=== PATIENT | female | born 1955 | race Caucasian/White ===

== ENCOUNTER → 2016-10-26 | Outpatient (CLI) | payer BC | END | disposition home or self-care (01) | LOC: C.PAPS 10:46 | PROVIDERS: ATTEND Obstetrics & Gynecology | DX: Z01.419 Encounter for gynecological examination (general) (routine) without abnormal findings (principal) ==

== ENCOUNTER → 2017-01-14 | Outpatient (CLI) | payer BC ==
[2017-01-14 10:32] LABS: CHOLESTEROL/HDL RATIO 4.6
== END | disposition home or self-care (01) ==
LOC: C.LAB 08:36
PROVIDERS: ATTEND Internal Medicine
DX: Z00.00 Encounter for general adult medical examination without abnormal findings (principal); R73.01 Impaired fasting glucose; E78.5 Hyperlipidemia, unspecified

== ENCOUNTER → 2017-03-30 | Outpatient (CLI) | payer BC ==
--- NOTE | 2017-03-30 12:14 | DIAGNOSTIC IMAGING REPORT ---
LEFT ANKLE MIN 3 VIEWS ROUTINE CLINICAL HISTORY: 61 years-old Female presenting with left ankle sprain. TECHNIQUE: Frontal, oblique, and lateral views of the left ankle were obtained. COMPARISON: None. FINDINGS: Prominent osteophyte of the posterior calcaneal tuberosity. Ankle mortise intact. No acute fracture, malalignment, or radiopaque foreign body. No gross evidence of a ankle joint effusion. IMPRESSION: 1. No acute osseous injury of the left ankle. Electronically signed by: Yong Saeed 03/30/2017 12:13 PM Dictated Date/Time: 03/30/2017 12:05 PM
== END | disposition home or self-care (01) ==
LOC: C.RAD1850 11:51
PROVIDERS: ATTEND Physician Assistant
DX: S93.409A Sprain of unspecified ligament of unspecified ankle, initial encounter (principal); X58.XXXA Exposure to other specified factors, initial encounter

== ENCOUNTER → 2017-07-18 | Outpatient (CLI) | payer BC ==
[2017-07-18 14:15] LABS: BLOOD UREA NITROGEN 12 mg/dl (7-18); BUN/CREATININE RATIO 15.1 (10-20); CALCIUM 9.3 mg/dl (8.5-10.1); CARBON DIOXIDE 28 mmol/L (21-32); CHLORIDE 102 mmol/L (98-107); CHOLESTEROL 249 mg/dl (0-200); GLUCOSE 105 mg/dl (70-99); SODIUM 136 mmol/L (136-145); TRIGLYCERIDES 104 mg/dl (0-150); VERY LOW DENSITY LIPOPROT CALC 21 mg/dl
[2017-07-18 14:19] LABS: CHOLESTEROL/HDL RATIO 5.1; HDL CHOLESTEROL 49 mg/dl; LDL CHOLESTEROL CALCULATED 179 mg/dl
== END | disposition home or self-care (01) ==
LOC: C.LABBC 09:21
PROVIDERS: ATTEND Internal Medicine
DX: E78.5 Hyperlipidemia, unspecified (principal); R73.01 Impaired fasting glucose

== ENCOUNTER → 2017-08-22 | Outpatient (CLI) | payer BC ==
--- NOTE | 2017-08-22 15:09 | MAMMOGRAPHY REPORT ---
BILATERAL DIGITAL SCREENING MAMMOGRAM TOMOSYNTHESIS WITH CAD: 08/22/2017 CLINICAL HISTORY: Routine screening examination. TECHNIQUE: Breast tomosynthesis in addition to standard 2D mammography was performed. Current study was also evaluated with a Computer Aided Detection (CAD) system. COMPARISON: Comparison is made to exams dated: 08/16/2016 mammogram, 08/13/2015 mammogram, 4 mammogram, 08/09/2013 mammogram, 08/07/2012 mammogram, and 07/21/2011 mammogram - [facility]. BREAST COMPOSITION: There are scattered areas of fibroglandular density in both breasts. FINDINGS: There are 2 stable lobulated and circumscribed low-density subcentimeter masses in the lef t breast, most likely representing cysts. A few scattered stable benign-appearing punctate microcalc ifications. No suspicious spiculated or irregular mass, architectural distortion or cluster of suspi cious microcalcifications is seen. IMPRESSION: ACR BI-RADS CATEGORY 1: NEGATIVE There is no mammographic evidence of malignancy. A 1 year screening mammogram is recommended. The pa tient will receive written notification of the results. Approximately 10% of breast cancers are not detected with mammography. A negative mammographic report should not delay biopsy if a clinically suggestive mass is present. Aretha Bailey M.D. ay/:08/22/2017 10:04:34 Video Clerk: Malorie HERNADEZ)([place]), [facility] letter sent: Normal 1/2 BI-RADS Code: ACR BI-RADS Category 1: Negative
== END | disposition home or self-care (01) ==
LOC: C.MAMM 08:58
PROVIDERS: ATTEND Obstetrics & Gynecology
DX: Z12.31 Encounter for screening mammogram for malignant neoplasm of breast (principal)

== ENCOUNTER → 2017-10-31 | Outpatient (CLI) | payer OTHER | END | disposition home or self-care (01) | LOC: C.PAPS 11:44 | PROVIDERS: ATTEND Obstetrics & Gynecology | DX: Z01.419 Encounter for gynecological examination (general) (routine) without abnormal findings (principal) ==

== ENCOUNTER 2024-12-10 08:48 | Observation (INO) ==
--- NOTE | 2024-11-12 10:35 | PAT Medication Instructions ---
Medication Instructions Date of Service November 12, 2024 Home Medications Medication Instructions Recorded Jayde Haines #1 ea 10/04/24 aspirin 81 mg tablet,delayed release (Adult Low Dose Aspirin) 81 mg PO QAM atorvastatin 20 mg tablet 20 mg PO QAM cholecalciferol (vitamin D3) 50 mcg (2,000 unit) capsule 50 mcg PO QPM losartan 50 mg tablet 50 mg PO QAM ASK your prescriber and surgeon aspirin 81 mg tablet,delayed release (Adult Low Dose Aspirin) 81 mg PO QAM DO NOT take the morning of surgery losartan 50 mg tablet 50 mg PO QAM Take morning of surgery With a small sip of water, OTHERWISE NOTHING TO EAT OR DRINK AFTER MIDNIGHT: atorvastatin 20 mg tablet 20 mg PO QAM Take evening before surgery cholecalciferol (vitamin D3) 50 mcg (2,000 unit) capsule 50 mcg PO QPM Other Notes If you have any questions please call us at [phone] or [phone] or [phone] or [phone]
--- NOTE | 2024-11-18 09:25 | Anesthesiology Consultation ---
Date of Service November 18, 2024 Assessment & Plan (1) Encounter for pre-operative examination: - Infectious disease screening: Per assessment on 11/18/24- No known recent infectious disease contacts or current infectious disease symptoms. - Outpatient joint assessment: Pt currently scheduled for inpatient pathway. If surgeon requests review for outpatient joint pathway, patient is not recommended candidate for outpatient joint program from anesthesia standpoint based on available information. - Cardiology visit (08/28/24): "SOBOE (shortness of breath on exertion).. Certainly has some component of post-COVID symptoms. Especially since she has had some improvement with time. She may also have some deconditioning. However, given her CT scan findings of atherosclerosis and calcification I feel she should undergo stress testing. She sounds as if she has some potential risk of walking on a treadmill secondary to lightheadedness and balance issues. I will have her undergo dobutamine stress echo. She needs only the rest and stress imaging without full echo evaluation since she is already had this. Further recommendations pending results.. Her CAT scan was not directed specific ally at evaluation of the coronaries. Calcification does not always correlate directly with occlusive atherosclerotic disease but she certainly had some atherosclerosis in the aorta. I would therefore treat her as a high risk patient. Obviously, if the stress test is abnormal we would proceed to coronary angiography. If the stress test is not suggestive of ischemia she will still need medical treatment targeted at secondary prevention. Therefore, I would have her on a low-dose aspirin, continue the angiotensin receptor babatunde, continue statin at high intensity, and consider the addition of the beta- babatunde.. Blood pressure is at the upper limit of acceptable today. For now, I will not make any changes. She will be on losartan 50 mg daily and once we have results of her stress test additional adjustments will be made.. Hyperlipidemia.. Patient is considered high risk. High intensity statin therapy is recommended. Under current guidelines we would target a 50% reduction in her baseline untreated LDL. Currently on a atorvastatin 20 mg daily. Her untreated baseline LDL was 154 mg/dL making her target 77 mg/dL. Current lipid panel from June shows triglycerides 68 mg/dL, total cholesterol 152 mg/dL, LDL 91 mg/dL and HDL 47 mg/dL. The HDL is near target (greater than 50 mg/dL for females) and the LDL is significantly improved but not yet at target. We can consider ei ther increasing her a atorvastatin or adding Zetia to achieve target LDL. Will discuss with her after studies are completed > Unremarkable stress echo performed 10/01/24. Patient reports good functional status and denies cardiopulmonary limiting complaints (including no CP or SOB with flight of stairs) at PAT visit 11/18/24. - PCP visit (10/03/24): " Posterior heel bump.. XR for further evaluation. Consider achilles tendinosis. Comress, ice, NSAIDs." - Podiatry visit (10/22/24): "Assessment: Achilles tendinosis left.. Discussed surgical intervention including tendon repair should issue become chronic and not resolved with exhaustion of conservative treatment options." Chart Review Chart Review: Acceptable Risk for Surgery and Patient seen in Pre Admission Testing Teaching & Discussion Pre-Anesthesia Teaching/Discussion Notes: Instructed NPO after midnight before surgery,except medications with 15 cc of water. Medication instructions provided according to the [facility] guidelines. History Surgery Operation Date: 12/10/24 10:35 Proposed Procedures p Right Total Knee Arthroplasty - Sanju Nicholas MD Height/Weight Height: 5 ft 4 in Weight: 91.9 kg Allergies Allergy/AdvReac Type Severity Reaction Status Date / Time doxycycline Allergy Rash Verified 11/18/24 09:41 (would likely tolerate per Body And Fender Worker testing) Medications Home Medications Medication Instructions Recorded Confirmed Last Taken Wheeled Walker #1 ea 10/04/24 10/22/24 Unknown aspirin 81 mg tablet,delayed 81 mg PO QAM 11/06/24 11/06/24 Unknown release (Adult Low Dose Aspirin) atorvastatin 20 mg tablet 20 mg PO QAM 11/06/24 11/06/24 Unknown cholecalciferol (vitamin D3) 50 50 mcg PO QPM 11/06/24 11/06/24 Unknown mcg (2,000 unit) capsule losartan 50 mg tablet 50 mg PO QAM 11/06/24 11/06/24 Unknown Past Medical History Medical History Coronary artery calcification seen on CAT scan Per records History of COVID-19 11/2022 - resolved Hx of motion sickness Hx of vertigo Treated with Zofran PRN, promethazine PRN, meclizine PRN No recent/current issues Hyperlipidemia Hypertension Impaired fasting glucose Per records Obesity (BMI 30.0-34.9) Osteoarthritis Osteopenia Exercise / Class Metabolic Activity II 4-5 Yardwork/Stairs/Walk up hill (one FS: No CP, no SOB) Past Family History Family History Father Atherosclerosis Hyperlipidemia Myocardial infarction Hypertension Mother Diabetes Type 2 Hyperlipidemia Hypertension Grandfather (Paternal) Myocardial infarction Other No family history of adverse response to anesthesia Denies family history of Ovarian cancer Breast cancer Colorectal cancer Past Surgical History Surgical History PONV (postoperative nausea and vomiting) S/P colonoscopy S/P laparoscopy with hystersalpingogram S/P tooth extraction Past Anesthesia History No Hx of Anesthesia Complications and No Family Hx of Anesthesia Complications History of PONV History of PONV and Hx of Motion Sickness Social History Smoking Status: Never smoker Do You Dip or Chew Tobacco: No Hx Alcohol Use: Yes (Very rarely) alcohol intake frequency: holidays/special occasions only Hx Substance Use: No substance use type: does not use Review of Systems Patient denies chest pain, shortness of breath, dyspnea on exertion, fever, chills, cough, wheezing. Physical Exam Vital Signs BP 142/65 P 74 TEMP 98.0 SP02 95%RA RESP 16 Physical Mildly decreased cervical extension range of motion. Full TMJ range of motion. TMD > 3.5 finger breaths Mallampati Score III Dentition: missing molars, + crowns/dental onlay Lungs: clear throughout to auscultation Cardiac: regular rate and rhythm, no murmurs noted Spine: normal Carotid arteries: negative bruit Extremities: no LE edema Lab Results Anesthesia Preop Results Results Anesthesia Widget: WBC 11.09 K/ul (4.8-10.8) H 11/18/24 Hgb 13.1 g/dl (12.0-16.0) 11/18/24 Hct 39.8 % (37.0-47.0) 11/18/24 Plt 371 K/uL (130-400) 11/18/24 Na 136 mmol/L (136-145) 11/18/24 K 4.1 mmol/L (3.5-5.1) 11/18/24 Cl 101 mmol/L (98-107) 11/18/24 CO2 30 mmol/L (21-32) 11/18/24 BUN 14 mg/dl (6-23) 11/18/24 Creat 0.71 mg/dl (0.6-1.2) 11/18/24 Glucose Level 113 mg/dl (70-99(Fasting)) H 11/18/24 PT 10.3 Seconds (9.0-12.0) 11/18/24 PTT 29 Seconds (21-31) 11/18/24 INR 0.9 (0.9-1.1) 11/18/24 Blood Type O Positive 11/18/24 Antibody Screen NEGATIVE 11/18/24 Testing Electrocardiogram Date: 08/28/24 NSR at 88bpm. Possible LAE. NS TWA. Chest X-Ray Date: 11/18/24 FINDINGS: Heart size and pulmonary vasculature are normal. No effusion or consolidation. IMPRESSION: No acute findings. Echocardiogram Date: 08/14/24 EF 55 to 60%. LV wall motion is normal. Grade 1 diastolic dysfunction. "Regional wall motion abnormalities cannot be excluded due to limited visualization" per report. "This was essentially a normal study." Stress Test Date: 10/01/24 Type: DSE Normal pharmacologic stress echocardiogram. No echocardiographic or ECG evidence of myocardial ischemia having achieved heart rate adequate for diagnostic purposes.Baseline hypertension at rest. Exaggerated hypertensive response with dobutamine infusion. Isolated occasional PVCs with dobutamine infusion. "This is considered a low risk dobutamine stress echo for myocardial ischemia"
--- NOTE | 2024-12-06 14:27 | History & Physical Report ---
Date of Service December 06, 2024 Assessment & Plan (1) Osteoarthritis of right knee: 69-year-old female with advanced right knee DJD. She has failed conservative measures. That she like to have her right knee fixed. Plan will can check with the operative right total knee replacement to the right cementless procedure explained and she understands. Informed consent is obtained. That she is planned to stay in the hospital overnight. Likely discharge postoperative day 1 with home health. Will use aspirin for DVT prophylaxis. (2) Other obesity due to excess calories: (3) BMI 34.0-34.9,adult: (4) Hypertension: (5) Hyperlipidemia: (6) Metabolic disorder: History of Present Illness Chief Complaint: . Bilateral knee pain and discomfort right side greater than the left. Primary Care Provider: Moody Roldan MD . The patient is a 69-year-old female who has a several year history of increasing bilateral knee pain discomfort described to gotten worse over time. She has been through extensive conservative conservative treatment over the years which has become less successful. The shots initially helped her quite a bit but the last shot really only helped for about a week or 2. The right knee is worse than the left. It is affecting her quality life. She would like to have her right knee fixed. Allergies Allergy/AdvReac Type Severity Reaction Status Date / Time doxycycline Allergy Rash Verified 12/04/24 11:33 (would likely tolerate per Managing Attorney testing) Home Medications Medication Instructions Recorded Confirmed Type Wheeled Walker #1 ea 10/04/24 12/04/24 Rx aspirin 81 mg tablet,delayed 81 mg PO QAM 11/06/24 12/04/24 History release (Adult Low Dose Aspirin) atorvastatin 20 mg tablet 20 mg PO QAM 11/06/24 12/04/24 History cholecalciferol (vitamin D3) 50 50 mcg PO QPM 11/06/24 12/04/24 History mcg (2,000 unit) capsule losartan 50 mg tablet 50 mg PO QAM 11/06/24 12/04/24 History amoxicillin 875 mg-potassium 1 tab PO BID 1 week #14 tabs 12/04/24 12/04/24 Rx clavulanate 125 mg tablet fluticasone propionate 50 1 spray intranasal BID #16 grams 12/04/24 12/04/24 Rx mcg/actuation nasal spray,suspension (Flonase Allergy Relief) Past Med/Surg History Problem List Other obesity due to excess calories BMI 34.0-34.9,adult Encounter for pre-operative examination Achilles tendinosis of left lower extremity Hypertension Abnormal CT scan of lung Osteoarthritis of right knee Calcification of aorta Osteopenia Doxycycline adverse reaction Hyperlipidemia (Acute) Lipoma (Acute) Metabolic disorder (Acute) Medical History Hx of motion sickness Hx of vertigo Treated with Zofran PRN, promethazine PRN, meclizine PRN No recent/current issues Coronary artery calcification seen on CAT scan Per records Obesity (BMI 30.0-34.9) Impaired fasting glucose Per records Hyperlipidemia Hypertension Osteopenia History of COVID-19 11/2022 - resolved Osteoarthritis Surgical History PONV (postoperative nausea and vomiting) S/P tooth extraction S/P laparoscopy with hystersalpingogram S/P colonoscopy Family History Father Atherosclerosis Hyperlipidemia Myocardial infarction Hypertension Mother Diabetes Type 2 Hyperlipidemia Hypertension Grandfather (Paternal) Myocardial infarction Other No family history of adverse response to anesthesia Denies family history of Ovarian cancer Breast cancer Colorectal cancer Social History Smoking Status: Never smoker Second Hand Exposure: No; Do You Dip or Chew Tobacco: No; Hx Alcohol Use: Yes (Very rarely) Alcohol Intake Frequency Comment: Socially Hx Substance Use: No Preferred Language: Maori Communication Ability: Effective Visual Impairment: No Limitations Hearing Ability: Normal Bottle And Glass Inspector Required: No Beliefs That Will Affect Care: None marital status: Current Living Situation: Spouse Current Living Situation Comment: current occupational status: retired current occupation: retired Feels Safe at Home: Yes Childhood Exposure to Second-Hand Smoke: No Dental Care, Regularly: Yes Physical Activity Frequency: 3-4 Times per Week Physical Activity Frequency Comment: Regularly Seatbelt Use: always Sunscreen Use: Yes Assistive Devices: Glasses Review of Systems All systems reviewed & are unremarkable except as noted in HPI & below. Physical Exam . Physical examination reveals a pleasant middle-age female but looks in pretty good health. Examination of her knees reveal patient ambulates independently. She got minimal limp. Moderate soft tissue envelope. Examination of the right knee reveals varus alignment to the knee. She is tender with medial joint line. Range of motion about 5-1 20. No instability. No pain with hip motion. Examination left knee reveals a similar slight varus deformity. Left mild tenderness medially. Range of motion is 0-1 25. No instability. Constitutional WD/WN, vitals as above Neck trachea midline, no thyromegaly Respiratory normal respiratory effort, lungs clear to auscultation Cardiovascular RRR, no murmur, no edema Gastrointestinal (Abdomen) normal bowel sounds, soft, nontender, no hepatosplenomegaly Results & Data Results & Data Laboratory Results . Diagnostic Findings . X-rays of the right knee reviewed. Shows advanced right knee medial compartment DJD. She is got complete loss of medial joint space. She has osteophytes primarily medially. Is some degree of tricompartment disease. PG Care Time/CCT Total # of Minutes Spent Total Time Spent with Patient: Total time spent is greater than 50% in coordination of care (as documented) at patient's floor/unit and/or counseling patient: Coding Level of Care Code None Diagnoses Osteoarthritis of right knee M17.11 Other obesity due to excess calories E66.09 BMI 34.0-34.9,adult Z68.34 Primary hypertension I10 Hypertension type: primary hypertension Hyperlipidemia E78.5 Metabolic disorder E88.9 (4) Hypertension Hypertension type: primary hypertension Qualified Code(s): I10 - Essential (primary) hypertension
[~2024-12-10 08:48] MED LIST: BUPIVACAINE 0.25% PF 30 ML VIAL ONE; BUPIVACAINE 0.5 % 5 MG/1 ML PF 10ML VIAL ONE
--- NOTE | 2024-12-10 09:00 | History & Physical Bridge Note ---
Date of Service December 10, 2024 History & Physical Bridge Note I have examined the patient, reviewed the History & Physical and in the interval since the performance of the History & Physical I have noted the following changes of clinical significance: no changes noted
[2024-12-10] MEDS: FAMOTIDINE 20 MG TAB PO SCH (09:23)
[2024-12-10] MEDS: CeleBREX 200 MG CAP PO SCH (09:23)
[2024-12-10] MEDS: METOCLOPRAMIDE HCL 10 MG TABLET PO SCH (09:23)
[2024-12-10] MEDS: LR 500ML BOLUS, THEN 15ML/HR IV SCH (09:23)
[2024-12-10] MEDS: ACETAMINOPHEN 500 MG TAB PO SCH ×2 (09:23→14:48)
[2024-12-10] MEDS: LR 60ML/HR IV SCH (09:24)
[2024-12-10] MEDS: dexAMETHasone**PF** 10 MG/ML VIAL IV SCH (09:24)
[2024-12-10] MEDS ORDERED: MIDAZOLAM HCL 1 MG/ML 2ML VIAL ONE ×2 (09:56)
[2024-12-10] MEDS ORDERED: ONDANSETRON INJ 2 MG/ML 2 ML VIAL IV PRN (09:57)
[2024-12-10] MEDS ORDERED: PROPOFOL IV EMULSION 10 MG/ML 20 ML VIAL IV ONE ×2 (09:57)
[2024-12-10] MEDS ORDERED: LIDOCAINE 2% 2 ML VIAL/AMP(20MG/ML) INFIL ONE (09:57)
[2024-12-10] MEDS ORDERED: ATROPINE SULFATE 0.1 MG/ML 10ML SYR IV PRN (09:57)
[2024-12-10] MEDS ORDERED: ePHEDrine sulfate 50 MG/ML AMP IV PRN (09:57)
[2024-12-10] MEDS ORDERED: ONDANSETRON INJ 2 MG/ML 2 ML VIAL ONE (09:57)
[2024-12-10] MEDS ORDERED: PROMETHAZINE HCL 6.25 MG in SODIUM CHLORIDE 0.9% 50 ML IV PRN (09:57)
[2024-12-10] MEDS: ceFAZolin 2000MG 2,000 MG/15 ML SYR IV SCH ×2 (10:37→17:19)
[2024-12-10] MEDS ORDERED: KETAMINE HCL 10MG/ML SYR ONE (10:45)
[2024-12-10] MEDS: ROPIV 0.5% 246mg, Ketorolac 30mg, EPINEPHrine 0.5mg in NSS INFIL SCH (11:11)
[2024-12-10] MEDS: ORTHO JOINT ANESTHETIC ONE (11:12)
[2024-12-10] MEDS: TRANEXAMIC ACID 1,000 MG **IV Intra-op IV SCH (11:26)
[2024-12-10] MEDS ORDERED: PROPOFOL IV EMULSION 10 MG/ML 100 ML VIAL IV ONE (11:28)
[2024-12-10] MEDS ORDERED: ePHEDrine sulfate 50 MG/5 ML SYR ONE (11:55)
--- NOTE | 2024-12-10 12:24 | Operative Report ---
PG Post Operative Report Pre & Post Diagnosis Operation Date: 12/10/24 10:40 Pre-Op Diagnosis: Right Knee Osteoarthritis Post-Op Diagnosis: Right Knee Osteoarthritis I identified the patient and participated in the time-out.: Yes Procedure Operation Date: 12/10/24 10:40 Actual Procedures p Right Total Knee Arthroplasty(Right) - Sanju Nicholas MD Surgeon Sanju Nicholas MD Window Glazier Joe Oneil PA-C Estimated Blood Loss 50 Findings Consistent with Post-Op Diagnosis Operative findings reveal advanced right knee DJD. She had pretty extensive grade 4 [id number] to the entire medial compartment with eburnation of the medial femoral condyle medial tibial plateau. She had a fixed varus deformity to the knee. Small to moderate-sized knee effusion. Specimens Right knee sent for pathology. Anesthesia Type Spinal MAC Complications none Disposition Accompanied Patient To Recovery: No Indications Patient is a 69-year-old female whose had a several year history of increasing right knee pain discomfort described to gotten worse over time. She failed conservative measures. X-rays show advanced right knee arthritis. She elected proceed with total knee arthroplasty. Description of Procedure Operative implants consisted of: 1. Biomet Vanguard size 62.5 right posterior Byce femoral component. 2. Biomet size 67 tibial tray. 3. 10 mm posterior stabilized polyethylene insert. 4. 28 x 8 all poly patella. The patient was taken the op room, identified, placed on the operating table in the supine position. All contact areas were appropriately padded. IV antibiotics fibra anesthesia team. A spinal anesthetic and adductor canal block had been provided in the holding area. A Gillespie catheter was placed in sterile fashion. Right thigh high tourniquet was then placed. The right lower extremities then prepped draped in usual sterile fashion. The right leg was elevated and exsanguinated with use of an Esmarch and a turn was placed at 300 mmHg. An anterior approach of the right knee was then performed to longitudinal incision centered over the patella. Sharp dissection was got through subcutaneous tissue down the extensor mechanism. A medial parapatellar arthrotomy incision was made. Some subperiosteal dissection was carried out medially. The fat pad was dissected from Neath patella tendon. Lateral patellofemoral ligament was released. Patella subluxated laterally the knee was flexed. The osteophytes taken off distal femur. ACL and PCL were then released from the distal femur and the tibia subluxated anteriorly. The ext ernal treatment LYMErix then placed on the anterior face the tibia and adjusted 14 mm medially. The proximal tibial cut was made remove about 2 mm of bone from the medial side. Tibia was sized to a size 67. Attention drawn the femur. The distal femur was entered with a sharp drill. Intramedullary canal was suction. A right 5 degree valgus cutting guide was placed. The distal femoral cutting block was pinned in place. Distal femoral cut was made to take an additional 3 mm of bone off distal femur. The femur was then sized to a size 62.5. The AP cutting block was pinned parallel to the epicondylar axis which was 4 degrees of external rotation. The anterior cut, anterior chamfer, posterior cut, posterior chamfer cuts were made. The box cutting guide was placed and adjusted slightly lateral and the box cut was made. The knee was flexed. The remnants of the medial and lateral menisci were excised. The osteophytes taken off the posterior aspect of femur. A trial femoral component was placed. The tibial tray was pinned in Luh external rotation and the drill and stem punch use great defect in proximal tibia for the tibial tray. The knee was then trialed and 10 mm insert fit most appropriately. Attention drawn the patella. The patella was cleaned of all soft tissue. Patella thickness measured 20 mm in thickness was cut down to 13. Was sized to a size 28 patella. The locals were drilled for the 28 patella. The lateral osteophytes removed. Patella button was placed. Knee was taken through range of motion and the patella tracked nicely with no thumbs test. Attention drawn to placement permanent components. Nupathe all trial components were removed. Bone plug was placed into this femur limit blood loss. Double batch Palacos G cement was mixed. Biomet Vanguard size 62.5 right posterior Byce femoral component, size 67 tibial tray, 10 mm posterior stabilized polyethylene insert, and a 28 x 8 all poly patella then cemented in place. The knee was brought out into full extension till cement hardened. Final cement check was then performed. The pericapsular tissues were injected with total 100 cc of Ortho mix. Patient did receive 1 g tranexamic acid. The tourniquet was then let down for final tourniquet time of 51 minutes. Hemostasis surgeries were cautery. Extensor Meclomen closed with combination 1 PDS suture #1 Vicryl suture in a [id number] fashion. Extensor Meclomen checked found be intact through subcutaneous tissue then closed with 2 Dexon suture in a buried interrupted fashion and the skin was closed skin morgan. Leg was then cleaned and dried and a sterile dressing with Xeroform, 4 fours, sterile cast padding, Lev bandage were applied. Patient then transferred to the recovery room in stable condition. The patient tolerated the procedure well and there were no complications. Joe Oneil, my physician dental assistant medical assistant, was present for the entire procedure. His assistance was essential and required for appropriate patient positioning, prepping and draping, surgical exposure, performing the technical details of the operation, placement the implants, closure of the wound, and placement of the sterile bandage. I attest to the content of the Intraoperative Record and any orders documented therein. Any exceptions are noted below.
--- NOTE | 2024-12-10 12:48 | XRay Report ---
XR knee RT 1 or 2V routine CLINICAL HISTORY: Surgical Post Op COMPARISON: Right knee radiographs October 03, 2024. FINDINGS: Alignment of the total right knee arthroplasty is anatomic. There is no periprosthetic fra cture or unexpected radiopaque foreign body. There are skin morgan. IMPRESSION: Expected findings following total right knee arthroplasty. ACT 112: Negative or not required by law. Electronically signed by: Dennys Bhakta M.D. 12/10/2024 12:47 PM
--- NOTE | 2024-12-10 13:03 | Anesthesiology Progress Note ---
Date of Service December 10, 2024 Anesthesia Post Procedure Vital Signs Vital Signs: Temp Pulse Resp BP Pulse Ox O2 Del Method O2 Flow Rate 12/10/24 12:50 88 20 143/60 H 94 Room Air 12/10/24 12:40 87 23 140/60 99 Oxymask 3 12/10/24 12:30 87 25 H 131/52 L 99 Oxymask 3 12/10/24 12:18 36.6 C 96 H 26 H 125/52 L 99 Oxymask 6 12/10/24 09:13 36.4 C L 83 18 181/73 H 97 Room Air Transfer of Care Handoff Completed per policy Notes Mental Status: alert / awake / arousable and participated in evaluation Patient Amnestic to Procedure: Yes Nausea / Vomiting: adequately controlled Pain: adequately controlled Airway Patency, RR, SpO2: stable & adequate BP & HR: stable & adequate Hydration State: stable & adequate Neuraxial Anesthesia: was administered and sensory block is resolving Anesthetic Complications: no major complications apparent and Pt Satisfied with anesthetic care
[2024-12-10] MEDS: fentaNYL citrate PF 100 MCG/2 ML VIAL IV PRN (13:19)
[2024-12-10] MEDS ORDERED: NALOXONE HCL 0.4 MG/1 ML VIAL/CARP IV PRN (14:05)
[2024-12-10] MEDS ORDERED: ALUMINUM/MAGNESIUM SUSP 30 ML UDC PO PRN (14:05)
[2024-12-10] MEDS ORDERED: bisacodyL 10 MG SUPP PR PRN (14:05)
[2024-12-10] MEDS ORDERED: MAGNESIUM HYDROXIDE SUSP 30 ML UDC PO PRN (14:05)
[2024-12-10] MEDS: ONDANSETRON INJ 2 MG/ML 2 ML VIAL IV PRN (14:44)
[2024-12-10] MEDS: ASCORBIC ACID 500 MG TAB PO SCH (16:22)
[2024-12-10] MEDS: METOCLOPRAMIDE HCL INJ 5 MG/ML 2 ML VIAL IV PRN (17:16)
[2024-12-10] MEDS: TRANEXAMIC ACID / 0.7% NACL 1,000 MG/100 ML BAG IV SCH (17:19)
[2024-12-10] MEDS: KETOROLAC TROMETHAMINE 15 MG/ML VIAL IV SCH (20:01)
[2024-12-10] MEDS: FLUTICASONE PROPIONATE NA SPR 16 GM BTL NAE SCH (20:06)
[2024-12-10] MEDS: SENNA 8.6 MG TAB PO SCH (20:09)
[2024-12-10] MEDS: DOCUSATE SODIUM 100 MG CAP PO SCH (20:09)
[2024-12-10] MEDS: CHOLECALCIFEROL 25 MCG (1000 UNITS) TAB PO SCH (20:09)
[2024-12-10] MEDS: ASPIRIN 81 MG ECTAB PO SCH (20:09)
[2024-12-10] MEDS ORDERED: SENNA 8.6 MG TAB PO SCH (21:00)
[2024-12-11 06:26] LABS: Hematocrit (blood only) 34.2 % (37.0-47.0); Hemoglobin 11.5 g/dl (12.0-16.0); Mean Corpuscular Hgb Conc 33.6 g/dL (32.0-36.0); Mean Corpuscular Volume 86.1 fL (80.0-100.0); Mean Platelet Volume 10.7 fL (9.4-12.4); Platelet Count 346 K/uL (130-400); RDW Coefficient of Variation 12.3 % (11.5-14.5); Red Blood Count 3.97 M/uL (4.20-5.40); White Blood Count 23.48 K/ul (4.8-10.8)
[2024-12-11 06:37] LABS: BUN Creatinine Ratio 20.8 (10-20); Calcium 9.3 mg/dl (8.6-10.3); Creatinine Clr Calc Pharmacy 74.6 ml/min; Potassium 4.2 mmol/L (3.5-5.1)
[2024-12-11] MEDS: oxyCODONE HCL IR 5 MG TAB (IMMEDIATE RELEASE) PO PRN (06:45)
[2024-12-11] MEDS: LOSARTAN POTASSIUM 50 MG TAB PO SCH (07:17)
[2024-12-11] MEDS: MULTIVITAMIN TAB PO SCH (07:17)
[2024-12-11] MEDS: dexAMETHasone 10 MG in SYRINGE 0 ML IV SCH (07:18)
[2024-12-11] MEDS: ATORVASTATIN 20 MG TAB PO SCH (08:39)
--- NOTE | 2024-12-11 09:15 | Orthopedic Progress Note ---
Date of Service December 11, 2024 Assessment & Plan (1) Status post total right knee replacement: She was seen and examined by Dr. Nicholas. Pain controlled. Had some nausea and does have zofran ordered and for home. PT/OT, wbat dvt prophylaxis: teds, scd's, aspirin wbc elevated today, likely just response to surgery d/c home with home health likely today after therapy Subjective .69 year old patient POD 1 from right tka. She did have some nausea but that se ems improved. Pain reasonably controlled. Review of Systems All systems reviewed & are unremarkable except as noted in HPI & below. Physical Exam .alert and oriented. NAD. VSS. Labs reviewed, wbc is 23.4 Right leg: dressing clean, dry, intact. Able to dorsiflex, plantarflex, NVI Results & Data Results & Data Laboratory Results . Diagnostic Findings . PG Care Time/CCT Total # of Minutes Spent Total Time Spent with Patient: Total time spent is greater than 50% in coordination of care (as documented) at patient's floor/unit and/or counseling patient: Coding Level of Care Code 65802 Post Operative Follow-Up Diagnoses Status post total right knee replacement Z96.651
[2024-12-11] MEDS: HYDROmorphone INJ 0.5 MG/0.5 ML SYR IV PRN (09:45)
--- NOTE | 2024-12-12 07:08 | Orthopedic Progress Note ---
Date of Service December 12, 2024 Assessment & Plan (1) Status post total right knee replacement: Seen and examined by Dr. Nicholas. continue PT/OT, wbat dvt prophylaxis: teds, scd's, aspirin dressing change today d/c planning: home today with home health after therapy. she has some sinus symptoms, continue cefadroxil as prescribed at home. Subjective .69 year old patient POD 2 from right tka. Having some knee pain. Took oxycodone for pain but it makes her feel sick. Discharge was cancelled yesterday due to nausea and vertigo. Complaining of some sinus symptoms. Review of Systems All systems reviewed & are unremarkable except as noted in HPI & below. Physical Exam .alert and oriented. NAD. VSS Right leg: dressing clean, dry, intact. Unable to do straight leg raise. Able to dorsiflex and plantarflex. NVI Results & Data Results & Data Laboratory Results . Diagnostic Findings . PG Care Time/CCT Total # of Minutes Spent Total Time Spent with Patient: Total time spent is greater than 50% in coordination of care (as documented) at patient's floor/unit and/or counseling patient: Coding Level of Care Code 11917 Post Operative Follow-Up Diagnoses Status post total right knee replacement Z96.651
[2024-12-12 07:51] VITALS: RESP 16; TEMP 97.9; O2SAT 96
[2024-12-12 11:07] VITALS: BP 138/69; PULSE 71
== END 2024-12-12 11:53 | disposition home health service (06) ==
LOC: ASU 08:48 → 3E 08:48